=== PATIENT | female | born 1945 | race Caucasian/White ===

== ENCOUNTER → 2019-06-10 | Outpatient (CLI) | payer OTHER ==
[~2019-06-10] MED LIST: Aspirin EC81 MG; CALCAVITD; FISH1000; FLUO10; Maxalt10 MG; Multiple Vitam1 EAC1; PROBIOTIC1 EAC1; VIT1CAPS12; Vitamin C100 M1; ZOLP5; Zofran4 MG
== END | disposition home or self-care (01) ==
LOC: LAB SHORT 14:09 → LAB EV 14:09
DX: N39.0 Urinary tract infection, site not specified (principal)
CPT/HCPCS: 87077; 87086; 87186

== ENCOUNTER → 2020-07-04 | Outpatient (CLI) | payer OTHER ==
[2020-07-04 14:59] LABS: Source, Urine Clean Catch
[2020-07-04 17:24] LABS: Appearance, Urine Clear (Clear); Bilirubin, Urine Neg (Neg); Blood, Urine Neg (Neg); Color, Urine Yellow (P-Yellow); Glucose Qualitative, Urine Neg (Neg); Ketones, Urine Neg (Neg); Leukocyte Esterase, Urine Neg (Neg); Nitrite, Urine Neg (Neg); Protein, Urine Neg (Neg); Urobilinogen, Urine NORM (Normal)
== END ==
LOC: LAB 14:24 → LAB SHORT 14:24
PROVIDERS: Urology
DX: Z09 Encounter for follow-up examination after completed treatment for conditions other than malignant neoplasm (principal); Z87.440 Personal history of urinary (tract) infections
CPT/HCPCS: 81003; 87086

== ENCOUNTER 2020-10-16 07:52 | Day surgery (SDC) | payer OTHER ==
[~2020-10-16] VITALS: Ht 165.1 cm; Wt 71.9 kg
--- NOTE | 2020-10-16 08:21 | NUR ---
10/16/20 0821 MAGGI MILLAN ONE ATTEMPT IN RH VALVE BY REX SECOND ATTEMPT IN RH BY REX MISSED
[2020-10-16] MEDS ORDERED: SULTRISS (08:23)
== END 2020-10-16 10:20 | disposition home or self-care (01) ==
LOC: ORSCSDS 07:52
PROVIDERS: Internal Medicine Gastroenterology
PROC: 0DJD8ZZ Inspection of Lower Intestinal Tract, Via Natural or Artificial Opening Endoscopic (ICD-10-PCS; principal; 2020-10-16 09:00)
DX: Z12.11 Encounter for screening for malignant neoplasm of colon (principal); Z86.010 Personal history of colon polyps; Z79.82 Long term (current) use of aspirin; Z79.899 Other long term (current) drug therapy
CPT/HCPCS: J0330; J0461; J2405; J2704; J7120

== ENCOUNTER → 2022-03-28 | Outpatient (CLI) | payer OTHER ==
[~2022-03-28] MED LIST changes: +SULTRISS
[2022-03-28 10:51] LABS: Source, Urine Clean Catch
[2022-03-28 13:05] LABS: Appearance, Urine Clear (Clear); Bilirubin, Urine Neg (Neg); Blood, Urine Neg (Neg); Color, Urine Yellow (P-Yellow); Glucose Qualitative, Urine Neg (Neg); Ketones, Urine Neg (Neg); Leukocyte Esterase, Urine Neg (Neg); Nitrite, Urine Neg (Neg); Protein, Urine Neg (Neg); Specific Gravity, Urine 1.015 (1.003-1.022); Urobilinogen, Urine NORM (Normal); pH, Urine 6.5 (5.0-8.0)
== END | disposition home or self-care (01) ==
LOC: LAB 10:49 → LAB SHORT 10:49 → EDSTATUS 03-27 17:55 → LAB FUT 03-27 17:55
PROVIDERS: Nurse Practitioner Family
DX: N39.0 Urinary tract infection, site not specified (principal)
CPT/HCPCS: 81003; 87077; 87086; 87186

== ENCOUNTER → 2023-03-31 | Outpatient (CLI) | payer OTHER | END | disposition home or self-care (01) | LOC: LAB SHORT 12:10 → LAB 12:10 | DX: R30.0 Dysuria (principal) | CPT/HCPCS: 87086 ==

== ENCOUNTER → 2023-04-02 | Outpatient (CLI) | payer OTHER ==
[2023-04-02 09:07] LABS: Source, Urine Clean Catch
[2023-04-02 10:40] LABS: Appearance, Urine Hazy (Clear); Bilirubin, Urine Neg (Neg); Blood, Urine 2+ (Neg); Color, Urine Yellow (P-Yellow); Glucose Qualitative, Urine Neg (Neg); Ketones, Urine Neg (Neg); Leukocyte Esterase, Urine 3+ (Neg); Nitrite, Urine Neg (Neg); Protein, Urine Neg (Neg); Specific Gravity, Urine 1.005 (1.003-1.022); Urobilinogen, Urine NORM (Normal)
[2023-04-02 10:49] LABS: Bacteria Rare /hpf; Squamous Epithelial Cells Not Seen /hpf (Few); White Blood Cells, Urine 25-50 /hpf (0-5)
== END | disposition home or self-care (01) ==
LOC: LAB SHORT 09:05 → LAB 09:05 → EDSTATUS 07-23 13:20 → LAB FUT 07-23 13:20
PROVIDERS: Urology
DX: R31.0 Gross hematuria (principal); Z87.440 Personal history of urinary (tract) infections
CPT/HCPCS: 81001; 87077; 87086; 87186

== ENCOUNTER → 2025-04-11 | Outpatient (CLI) | payer OTHER | LOC: LAB 17:17 → LAB SHORT 17:17 | DX: R30.0 Dysuria (principal) | CPT/HCPCS: 87086 ==

== ENCOUNTER → 2025-04-19 | Outpatient (CLI) | payer OTHER | LOC: LAB 11:49 → LAB SHORT 11:49 | DX: R30.0 Dysuria (principal) | CPT/HCPCS: 87086 ==

== ENCOUNTER 2025-05-26 13:47 | Day surgery (SDC) | payer OTHER ==
[2025-05-26] VITALS (17 sets, daily range): BP systolic 106–126; BP diastolic 51–72
[~2025-05-26] VITALS: Ht 162.6 cm; Wt 71.3 kg
[~2025-05-26 13:47] MED LIST changes: +AZO CRANBERRY PO; +C COMPLEX1000 M1 PO; +CALCIUM CITRAT250 MG PO; +CeFAZolin Sodium 2,000 MG in NS 100 ML IV SCH; +Chlorhexidine Mouth Care 15 ML UDC MT SCH; +FISH OIL 1,0001 EA10 PO; -FISH1000; -FLUO10; +FLUO10 PO; +GLUC500 PO; +MIRALAX17 GM PO; +MULTI-VITAMIN1 EAC2 PO; +PRESERVISION L1 EAC2 PO; +PROBIOTIC1 EA13 PO; -PROBIOTIC1 EAC1; +Ropivacaine 0.5% HCl/Pf 123.125 MG,EPINEPHrine HCL 0.25 MG,Ketorolac Tromethamine 15 MG... INFIL SCH; +Tranexamic Acid 100 ML IV SCH; -VIT1CAPS12; -Vitamin C100 M1; +ZOLP5 PO; +[UNRECOGNIZED DRUG - SUPPLY]
--- NOTE | 2025-05-26 14:28 | NUR ---
Ambulatory in Day Surgery History, Chart, Medications and Allergies reviewed before start of procedure. Pre-Op teaching done. Pt verbalizes understanding. Patient States Post-Procedure ride home has been arranged.
[2025-05-26] MEDS ORDERED: FentaNYL Citrate 50 MCG/ML 2 ML Injection ONE ×2 (14:55→17:05)
[2025-05-26] MEDS ORDERED: Rocuronium Bromide 10 MG/ML 5ML Injection IV ONE (14:58)
[2025-05-26] MEDS ORDERED: Dexamethasone Sod Phos 10 MG/ML 1ML VIAL ONE (15:12)
[2025-05-26] MEDS ORDERED: Ondansetron HCl 2 MG / ML 2ML Vial ONE (15:12)
[2025-05-26] MEDS ORDERED: ePHEDrine Sulfate 50 MG/ML 1ML Injection ONE (15:47)
[2025-05-26] MEDS ORDERED: Ketamine HCl 100 MG / ML 5ML Vial ONE (15:48)
[2025-05-26] MEDS ORDERED: Sugammadex Sodium 200 MG/2ML SDV (100 MG/ML) ONE (16:32)
[2025-05-26] MEDS ORDERED: HYDROmorphone HCl/Pf 1MG SYR ONE ×2 (16:44→17:02)
[2025-05-26] MEDS ORDERED: HYDROmorphone HCl/Pf 1MG SYR IV PRN ×5 (17:00→17:15)
[2025-05-26] MEDS ORDERED: Ketorolac Tromethamine 30mg Vial ONE (17:01)
[2025-05-26] MEDS ORDERED: Ondansetron HCl 2 MG / ML 2ML Vial IV PRN (17:05)
[2025-05-26] MEDS ORDERED: Metoclopramide HCl 5MG / ML 2ML Vial IV PRN ×3 (17:05→17:15)
[2025-05-26] MEDS ORDERED: FLU VACC TS2025(65UP)/MF59C/PF 45 MCG/0.5 ML SYRINGE IM SCH (17:05)
[2025-05-26] MEDS ORDERED: Magnesium Hydroxide Conc 10 ML UDC PO PRN (17:05)
[2025-05-26] MEDS ORDERED: FentaNYL Citrate 50 MCG/ML 2 ML Injection IV PRN ×3 (17:10→17:15)
[2025-05-26] MEDS ORDERED: Ketorolac Tromethamine 30mg Vial IV PRN (17:25)
--- NOTE | 2025-05-26 17:49 | NUR ---
PT TO ROOM 216 FROM PACU. SLEEPY BUT AROUSABLE TO VERBAL. POST OP VS STARTED AND STABLE. KNEE DRESSING L CDI. SCDS ON . PT PROVIDED WITH WATER AND SNACKS. WILL CONTINUE TO MONITOR.
[2025-05-26] MEDS ORDERED: Ketorolac Tromethamine 15mg Vial IV SCH (18:00)
[2025-05-26] MEDS ORDERED: CeFAZolin Sodium 2,000 MG in NS 100 ML IV SCH (23:00)
[2025-05-27 02:52] VITALS: BP 117/66
[2025-05-27 03:54] LABS: BASOPHILS ABSOLUTE AUTO 0.00 K/mm3 (0.00-0.23); BASOPHILS PERCENT AUTO 0 % (0-2); EOSINOPHILS ABSOLUTE AUTO 0.00 K/mm3 (0.00-0.68); EOSINOPHILS PERCENT AUTO 0 % (0-6); Hematocrit 35.3 % (33.0-51.0); Hemoglobin 11.4 g/dL (11.5-16.0); IMMATURE GRAN ABSOLUTE AUTO 0.03 K/mm3 (0.00-0.10); IMMATURE GRAN PERCENT AUTO 0 % (0-1); LYMPHOCYTES ABSOLUTE AUTO 0.66 K/mm3 (0.84-5.20); LYMPHOCYTES PERCENT AUTO 9 % (21-46); MONOCYTES ABSOLUTE AUTO 0.31 K/mm3 (0.16-1.47); MONOCYTES PERCENT AUTO 4 % (4-13); Mean Corpuscular HGB Conc 32.3 g/dL (31.5-36.5); Mean Corpuscular Volume 98 fL (80-100); NEUTROPHILS ABSOLUTE AUTO 6.75 K/mm3 (1.96-9.15); NEUTROPHILS PERCENT AUTO 87 % (41-73); NRBC ABSOLUTE 0.00 K/mm3 (0.00-0.02); NRBC Auto 0.0 /100 WBC (0.0-0.2); Platelet Count 241 K/mm3 (150-400); RDW Coefficient Variation 13.3 % (11.7-14.2); RDW Standard Deviation 47.8 fL (35.1-46.3)
[2025-05-27 04:20] LABS: Anion Gap 7.0 mmol/L (3-11); Blood Urea Nitrogen 13.0 mg/dL (8-24); CO2, Blood 29.0 mmol/L (21-32); Calcium, Blood 8.7 mg/dL (8.5-10.1); Chloride, Blood 103.0 mmol/L (98-108); Creatinine, Blood 0.63 mg/dL (0.40-1.00); Glucose, Blood 143.0 mg/dL (70-99); Magnesium, Blood 2.0 mg/dL (1.6-2.4); Potassium, Blood 4.3 mmol/L (3.5-5.5); Sodium, Blood 135.0 mmol/L (136-145)
--- NOTE | 2025-05-27 05:32 | NUR ---
ASSEMBLY MACHINE FEEDER SUMMARY PT IS POD 0 FOR L TKA. AT START OF SHIFT PT ON 4L O2 VIA NC BUT WAS ABLE TO TITRATE TO RA AFTER A FEW HOURS. PT REPORTED SOME DIZZINESS OFF/ON AT START OF SHIFT BUT IMPROVED THROUGH THE NIGHT. PT ABLE TO GET UP TO THE BSC WITH MINIMAL ASSIST AND DID QUITE WELL. PAIN CONTROLLED WITH SCHEDULED PAIN MEDICATIONS. PT TOLERATING PO, DENIES NAUSEA. VSS, WCTM.
[2025-05-27] MEDS ORDERED: ASPI81CH PO (07:25)
[2025-05-27 07:26] VITALS: BP 105/60
[2025-05-27] MEDS ORDERED: IBUP400 PO (07:53)
--- NOTE | 2025-05-27 18:03 | NUR ---
SHIFT SUMMARY AND DISCHARGE PATIENT ALERT AND INTERACTIVE. PATIENT ABLE TO AMBULATE TO BR WITH WALKER. PATIENT REPORTED SOME DIZZINESS/LIGHT HEADED FEELING WHILE STANDING AT THE SINK FOR A LONG PERIOD OF TIME. PROVIDED EDUCATION RELATED TO SAFE AMBULATION AND FALL RISK REDUCTION. DISCHARGE PAPERWORK REVIEWED WITH PATIENT AND . IV REMOVED PRIOR TO DISCHARGE. PATIENT TAKEN OUT VIA WHEELCHAIR. BELONGINGS SENT WITH PATIENT. ROOM CHECK DONE PRIOR TO DISCHARGE.
--- NOTE | 2025-05-27 18:08 | NUR ---
PT DISCHARGED AT 10:30
== END 2025-05-27 10:30 | disposition home or self-care (01) ==
LOC: ORSCMMR 13:47 → ORD 15:00 → ORSCMMR 15:00 → SURS 17:34 → ORSCMMR 05-27 10:30
PROVIDERS: Orthopaedic Surgery
PROC: 0SRD0J9 Replacement of Left Knee Joint with Synthetic Substitute, Cemented, Open Approach (ICD-10-PCS; principal; 2025-05-26 15:00)
DX: M17.12 Unilateral primary osteoarthritis, left knee (principal); F41.9 Anxiety disorder, unspecified; Z79.899 Other long term (current) drug therapy; Z85.828 Personal history of other malignant neoplasm of skin
CPT/HCPCS: 36415; 73560-LT; 80048; 83735; 85025; 97110; 97116; 97161; 97530; A9270; C1713; C1776; J0166; J0690; J0735; J1100; J1171; J1885; J2405; J2704; J2795; J3010; J7120